=== PATIENT | male | born 1980 | race Caucasian/White ===

== ENCOUNTER 2023-09-19 20:33 | Emergency (ER) | payer BC, SELFPAY ==
[2023-09-19 20:37] VITALS: BP 172/83
[2023-09-19 20:38] VITALS: BP 172/83
[2023-09-19 21:00] VITALS: BP 158/89
[2023-09-19 21:40] VITALS: BP 144/88
[2023-09-19 21:53] LABS: % Basophils 0.2 % (0-2); % Eosinophils 0.2 % (0-6); % Immature Granulocytes 0.3 % (0-0.5); % Lymphocytes 8.5 % (20.5-51.1); % Neutrophils 82.8 % (42.2-75.2); Absolute Lymphocytes 0.8 10^3/uL (1.2-3.4); Absolute Monocytes 0.8 10^3/uL (0.1-0.6); Absolute Neutrophils 7.9 10^3/uL (1.4-6.5); Hematocrit 31.2 % (39.0-52.0); Hemoglobin 11.3 g/dL (13.0-18.0); Mean Corp Hgb Conc. 36.2 g/dL (33.0-37.0); Mean Corpuscular Hgb 33.9 pg (27.0-31.0); Mean Corpuscular Volume 93.7 fL (80.0-94.0); Mean Platelet Volume 9.1 fL (7.4-10.4); Nucleated Red Blood Cells % 0 % (-); Platelet Count 160 10^3/uL (130-400); Red Blood Cell Count 3.33 10^6/uL (4.70-6.10); Red Cell Dist. Width 12.7 % (11.5-14.5); White Blood Cell Count 9.6 10^3/uL (4.8-10.8)
[2023-09-19] MEDS: KEPPRA 1000 MG PO (21:53)
[2023-09-19 22:00] VITALS: BP 146/85
[2023-09-19 22:06] LABS: ALT (SGPT) 152 U/L (0-50); AST (SGOT) 148 U/L (17-59); Albumin 3.6 g/dl (3.5-5.0); Alkaline Phosphatase 113 U/L (38-126); Blood Urea Nitrogen 15 mg/dl (9-20); Calcium 8.9 mg/dl (8.4-10.2); Carbon Dioxide 24 mmol/L (22-30); Chloride 95 mmol/L (98-107); Glucose 159 mg/dl (70-99); Sodium 129 mmol/L (135-145); Total Bilirubin 0.7 mg/dl (0.2-1.3); eGFR > 60.00
[2023-09-19 22:30] VITALS: BP 145/94
--- NOTE | 2023-09-19 23:48 | ED.GENMED ---
History of Present Illness
General
Chief Complaint: Seizure
Source: patient and family
Time Seen by Provider: 09/19/23 20:39
Travel History
Have you had any contact with someone who has COVID-19?: No
Do you have any symptoms of coronavirus? Fever > 100 degrees, chills, cough, shortness of breath, sore throat, loss of taste or smell, muscle aches, or headache?: No
History of Present Illness
History of Present Illness:
43-year-old male presents after he had a seizure. He states he was outside and was coming inside when he developed symptoms like he gets when he is to have a seizure. The patient states he got chills up his back which is common and he then had a
seizure. He did fall. Family states he struck his head on the ground. The patient denies neck pain or back pain. Is on Keppra and has been taking dosages normally. Denies motor weakness. Denies any recent illness. Patient states he woke up to
police and EMS at bedside
Past History
Past History
ED Past Medical History: Seizures
ED Past Surgical History: Other (Temporal lobe resection)
Social History
Tobacco: Non-smoker
Alcohol: None
Drug: None
Living: with family
Phy Exam
Physical Exam
Physical Exam:
CONSTITUTIONAL Patient alert and oriented to person, place and time. Well-appearing. Vital signs reviewed.
HEAD atraumatic, normocephalic.
EYES eyelids normal to inspection, Pupils equally round and reactive to light, Extraocular muscles intact, Conjunctiva normal, Sclera normal.
NECK normal range of motion, Trachea midline, no jugular venous distention. No midline tenderness. Normal range of motion
RESPIRATORY CHEST No respiratory distress noted, Chest expansion equal, Bilateral breath sounds clear.
CARDIOVASCULAR regular rate and rhythm, Heart sounds normal.
ABDOMEN abdomen nontender, Bowel sounds normal. No distention.
BACK normal inspection, no obvious deformities
UPPER EXTREMITY range of motion normal, Motor strength normal, no cyanosis, no edema.
LOWER EXTREMITY range of motion normal, Motor strength normal, no cyanosis, no edema.
NEURO Speech normal, No focal motor deficits, [place] coma scale 15, Memory normal, Cranial Nerves intact to screening exam.
SKIN skin warm, dry, and normal in color.
PSYCHIATRIC patient oriented to person place and time, Normal affect.
Course
Orders/Labs/Results
Orders:
Orders
09/19/23 21:17
Levetiracetam [Keppra] 1,000 mg PO NOW STA
09/19/23 21:18
CT Head W/o Iv Contrast Stat
Comment:
Reason For Exam: fall, seizure, h/o seizure
09/19/23 21:45
Complete Blood Count/With Diff Urgent
Comprehensive Metabolic Panel Urgent
09/19/23 23:37
Potassium Chloride 10% Elixir [KCl Elixir] 40 meq PO NOW STA
09/19/23 23:51
Vital Signs- Treatment ONCE
Frequency: Once
Abnormal Lab Results
09/19/23
21:45
RBC 3.33 L 10^6/uL
(4.70-6.10)
Hgb 11.3 L g/dL
(13.0-18.0)
Hct 31.2 L %
(39.0-52.0)
MCH 33.9 H pg
(27.0-31.0)
Absolute Neuts (auto) 7.9 H 10^3/uL
(1.4-6.5)
Absolute Lymphs (auto) 0.8 L 10^3/uL
(1.2-3.4)
Absolute Monos (auto) 0.8 H 10^3/uL
(0.1-0.6)
Neutrophils % 82.8 H %
(42.2-75.2)
Lymphocytes % 8.5 L %
(20.5-51.1)
Sodium 129 L mmol/L
(135-145)
Potassium 3.0 L mmol/L
(3.5-5.1)
Chloride 95 L mmol/L
(98-107)
Glucose 159 H mg/dl
(70-99)
AST 148 H U/L
(17-59)
ALT 152 H U/L
(0-50)
09/19/23 21:45
09/19/23 21:45
Vital Signs
Initial and Last Documented VS:
Initial Vital Signs
Temp Pulse Resp BP Pulse Ox
98.8 F 128 21 172/83 96
09/19/23 20:37 09/19/23 20:37 09/19/23 20:37 09/19/23 20:37 09/19/23 20:37
Last Documented Vital Signs
Temp Pulse Resp BP Pulse Ox
98.8 F 128 21 172/83 96
09/19/23 20:37 09/19/23 20:37 09/19/23 20:37 09/19/23 20:37 09/19/23 20:38
MDM/Problems Addressed
MDM/Problems Addressed:
Seizure,, diuretic use, hypokalemia
*Radiology
Radiology exam reviewed: radiology read reviewed
*Pulse Oximetry
Patient hypoxic: no
*Cloth [employer]orer Interpretation
Rate: normal
Interpretation: normal
Rhythm: sinus
*Critical Care Note
Total Time (30-74mins, 75-104mins- exclusive of procedures): Not Applicable
Data Reviewed
Source: patient and family
Further Testing Considered But Not Given:
Consider C-spine imaging but negative Nexus criteria
Patient Management
Escalation/DeEscalation of care consider admission/obs:
Patient appears well. Hemodynamically stable. Exam. Hypokalemia noted and likely related to hydrochlorothiazide. Patient states he has had this in the past. I recommended that he take 20 mill equivalents potassium daily for the next 5 days and
follow-up with his PCP for repeat labs. Patient given his nighttime Keppra. Patient observed. Advised not to drive until cleared by PCP or neurology. [employer] form filed online
ED Attending Note
-
Portions of this chart may have been created with voice recognition software.� Occasional wrong word or��sound alike� substitutions may have occurred due to the inherent limitations of voice recognition software.
Discharge Plan
Departure
Patient Disposition: Home (Routine Discharge)
Date of Disposition: 09/20/23
Time of Disposition: 00:02
Patient with high blood pressure during this ER visit?: Yes
Discharge Problem:
Seizure
Instructions: Seizures, Adult (DC), BLOOD PRESSURE
Prescriptions:
No Action
levetiracetam 500 MG tablet
500 mg PO BID
sertraline 100 MG tablet
100 mg PO DAILY
[id number] [Mens Multivitamin High Potency] 1 EACH tablet
1 ea PO DAILY
Lisinopril/Hydrochlorothiazide
1 tab PO DAILY
Patient Comments:
unsure of dose
Potassium
1 tab PO DAILY
Patient Comments:
unsure of dose
Vitamin D3
1 tab PO DAILY
Patient Comments:
unsur of dose
levetiracetam 500 MG tablet
500 mg PO BID Qty: 90 0RF
Referrals:
Christopher Emerson MD [Family Provider] -
Activity Restrictions/Additional Instructions:
Please continue use of your Keppra daily. Please take 20 milliequivalents of potassium daily for the next 7 days. Please be sure to see your doctor in the next 3 to 5 days for follow-up and reevaluation and to consider repeat labs to check your
potassium and sodium. Return to [facility] for fevers, vomiting, recurrent seizures or any other concerns.
Interventions
Interventions:
*Risk Screen - Suicide Last Done: 09/19/23 20:37
*General Assessment Last Done: 09/19/23 20:37
*Neglect/Abuse Screening Last Done: 09/19/23 20:37
ED- Fall Risk Assessment Last Done: 09/19/23 20:38
*ED COVID-19 Vaccine History Last Done: 09/19/23 20:38
ED- Cardiac Assessment Last Done: 09/19/23 20:38
ED- Neurological Assessment Last Done: 09/19/23 20:38
ED- Pulmonary Assessment Last Done: 09/19/23 20:38
[2023-09-20] MEDS: KCL ELIXIR 40 MEQ PO (00:25)
[2023-09-20] MEDS: TYLENOL 650 MG PO (00:28)
== END 2023-09-20 00:50 | disposition home or self-care (01) ==
LOC: EMR 20:33
PROVIDERS: EMERGENCY PHYSICIAN Emergency Medicine; FAMILY PHYSICIAN Internal Medicine
DX: R56.9 Unspecified convulsions (principal); E87.6 Hypokalemia; Z79.899 Other long term (current) drug therapy; R03.0 Elevated blood-pressure reading, without diagnosis of hypertension
CPT/HCPCS: 99284; 70450; 80053; 85025

== ENCOUNTER → 2023-12-29 11:10 | Outpatient (REF) | payer BC, SELFPAY ==
--- NOTE | 2023-12-29 12:56 | EEG.RPT ---
Electroencephalogram Report
Recording
Date of EE12/29/23
Length of EEG recordin hour 7 minutes
Done with Video Recording: Yes
Patient Status: Outpatient
Recording Conditions: Awake and Drowsy
Hyperventilation Performed: Yes
Photic Stimulation Performed: Yes
Report
GREATER THAN 1 HOUR EEG REPORT
METHODS:
A 21 channel digitized electroencephalogram (EEG) was performed using the 10/20 international system of electrode placement and one-lead of ECG recorded. Study lasted 1 hour 7 minutes
ELECTROENCEPHALOGRAPHER IMPRESSION(S):
Quality of study
Good
Background
There was an unremarkable anterior-posterior voltage gradient of alpha frequency.
With eye opening the background activity changed to a low voltage mixture of frequencies.
There were no significant asymmetries of background activity noted.
Sleep
Drowsiness present
Hyperventilation
No activation
Photic Stimulation
No activation
ECG
Normal sinus rhythm
GREATER THAN 1 HOUR EEG INTERPRETATION:
Unremarkable EEG for age
CLINICAL CORRELATION:
A normal EEG does not rule out a diagnosis of epilepsy. �If clinical suspicion for seizure persists, a prolonged recording may be warranted.
Clinical correlation is advised.
== END ==
LOC: EEG 11:10
PROVIDERS: ATTENDING PHYSICIAN Psychiatry & Neurology Neurology; FAMILY PHYSICIAN Student in an Organized Health Care Education/Training Program
DX: G40.419 Other generalized epilepsy and epileptic syndromes, intractable, without status epilepticus (principal)
CPT/HCPCS: 95813